=== PATIENT | male | born 1970 | race Caucasian/White ===

== ENCOUNTER 2019-10-24 22:34 | Outpatient (REF) | payer MEDICAID, SELFPAY ==
[2019-10-24 22:38] LABS: ALT 30 U/L (16-63); AST 12 U/L (15-37); Albumin 4.1 g/dL (3.4-5.0); Alkaline Phosphatase 95 U/L (46-116); Anion Gap 7.9 mmol/L (3-11); BUN 13 mg/dL (7-18); Bilirubin, Total 0.2 mg/dL (0.2-1.0); CO2 29.1 mmol/L (21.0-32.0); CREATININE 0.93 mg/dL (0.70-1.30); Calcium 9.4 mg/dL (8.5-10.1); Calculated LDL 61 mg/dL (<100); Chloride 106 mmol/L (98-107); Cholesterol 140 mg/dL (<200); Glucose 99 mg/dL (74-106); HDL Cholesterol 30 mg/dL (40-60); Magnesium 2.2 mg/dL (1.8-2.4); Potassium 4.1 mmol/L (3.5-5.1); Sodium 143 mmol/L (136-145); Total Protein 7.7 g/dL (6.4-8.2); Triglyceride 245 mg/dL (<150); Vitamin B12 1195 pg/mL (193-986)
== END 2019-10-24 22:54 ==
LOC: NCHCN 22:34
PROVIDERS: Visit Provider Nurse Practitioner Family
DX: I10 Essential (primary) hypertension (principal); F17.210 Nicotine dependence, cigarettes, uncomplicated; F11.20 Opioid dependence, uncomplicated; F41.0 Panic disorder [episodic paroxysmal anxiety]; F51.05 Insomnia due to other mental disorder; K21.9 Gastro-esophageal reflux disease without esophagitis
CPT/HCPCS: 80053; 80061; 82607; 83735

== ENCOUNTER 2020-09-16 06:19 | Emergency (ER) | payer MEDICAID, SELFPAY ==
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
[2020-09-16 06:27] VITALS: BP 143/101; PULSE 84; RESP 16; TEMP 36.1; O2SAT 97
--- NOTE | 2020-09-16 06:30 | DI.RAD_ITS ---
Exam(s) XR TIB/FIB LT EXAM: XR TIB/FIB LT CLINICAL HISTORY: persistent proximal fibula pain s/p blunt trauma. TECHNIQUE: 2D digital imaging was performed. COMPARISON: No exams were available for comparison FINDINGS: There is no evidence fracture nor dislocation. No evidence of obvious tibial plateau fracture. Bone density is age-appropriate. No radiopaque foreign body seen. No ominous osseous lesions. Inferior calcaneal spur is incidentally noted. IMPRESSION: No fracture seen DATA REPOSITORY: RADIATION DOSE DELIVERED:
--- NOTE | 2020-09-16 07:06 | DI.VRAD_ITS ---
PROCEDURE INFORMATION: Exam: XR Left Tibia and Fibula Exam date and time: 09/16/2020 6:39 AM Age: 50 years old Clinical indication: Lower leg; Left; Patient HX: Persistent proximal fibula pain S/P blunt trauma 2 weeks ago at work TECHNIQUE: Imaging protocol: XR Left tibia and fibula. Views: 2 views. COMPARISON: No relevant prior studies available. FINDINGS: Bones/joints: Normal. Soft tissues: Normal. IMPRESSION: No acute findings. Dictated and Authenticated by: West Be MD. Ordering:MERLYN Blakely MD
[2020-09-16 07:36] VITALS: BP 124/91; PULSE 78; RESP 18; TEMP 36.2; O2SAT 96
== END 2020-09-16 17:37 | disposition home or self-care (01) ==
PROVIDERS: Emergency Provider Emergency Medicine; PCP Internal Medicine
DX: S80.12XA Contusion of left lower leg, initial encounter (principal); W22.8XXA Striking against or struck by other objects, initial encounter
CPT/HCPCS: 99283; 73590; 99282

== ENCOUNTER 2020-11-19 16:57 | Outpatient (REF) | payer MEDICAID, SELFPAY ==
[2020-11-19 21:45] LABS: Anion Gap 6.3 mmol/L (3-11); BUN 13 mg/dL (7-18); CO2 28.7 mmol/L (21.0-32.0); CREATININE 1.1 mg/dL (0.70-1.30); Calcium 9.6 mg/dL (8.5-10.1); Chloride 106 mmol/L (98-107); Glucose 104 mg/dL (74-106); Potassium 4.2 mmol/L (3.5-5.1); Sodium 141 mmol/L (136-145)
== END 2020-11-19 16:58 | disposition home or self-care (01) ==
LOC: NCHCN 16:57
PROVIDERS: PCP Internal Medicine; Visit Provider Internal Medicine
DX: I10 Essential (primary) hypertension (principal)
CPT/HCPCS: 80048

== ENCOUNTER 2022-03-31 19:33 | Outpatient (REF) | payer MEDICAID, SELFPAY ==
[2022-03-31 21:31] LABS: BUN 12 mg/dL (7-18); Chloride 103 mmol/L (98-107); Glucose 112 mg/dL (74-106); Sodium 139 mmol/L (136-145)
== END 2022-03-31 19:34 | disposition home or self-care (01) ==
LOC: NCHCN 19:33
PROVIDERS: PCP Internal Medicine; Visit Provider Internal Medicine
DX: F11.20 Opioid dependence, uncomplicated (principal); I10 Essential (primary) hypertension; F17.210 Nicotine dependence, cigarettes, uncomplicated
CPT/HCPCS: 80048

== ENCOUNTER 2023-04-12 15:43 | Outpatient (REF) | payer MEDICAID, SELFPAY ==
[2023-04-12 21:11] LABS: Anion Gap 7.7 mmol/L (3-11); BUN 16 mg/dL (7-18); CO2 28.3 mmol/L (21.0-32.0); Calcium 8.9 mg/dL (8.5-10.1); Chloride 105 mmol/L (98-107); Estimated GFR 89.44 (mL/min/1.73m2); Glucose 88 mg/dL (74-106); Potassium 4.3 mmol/L (3.5-5.1); Sodium 141 mmol/L (136-145)
== END 2023-04-12 15:44 | disposition home or self-care (01) ==
LOC: NCHCN 15:43
PROVIDERS: PCP Internal Medicine; Visit Provider Family Medicine
DX: I10 Essential (primary) hypertension (principal)
CPT/HCPCS: 80048

== ENCOUNTER 2023-07-12 06:57 | Day surgery (SDC) | payer MEDICAID, SELFPAY ==
--- NOTE | 2023-07-11 19:48 | W.PM.DSUDISC ---
Date of service: 07/12/23 Time of Service: 08:26 Discharge Plan Disposition Patient Disposition: Home Condition: Good Discharge Details Reason For Visit: screening colonoscopy Attending Provider: Herb Trevizo Primary Care Provider: Stephanie Morelos Home Meds and New Rx's Prescriptions: Continued melatonin 3 mg capsule 6 mg PO HS PRN pantoprazole 40 mg tablet,delayed release (DR/EC) 40 mg PO DAILY lisinopril 40 mg tablet 40 mg PO DAILY bupropion HCl [Wellbutrin XL] 300 mg tablet extended release 24 hr 300 mg PO QAM bupropion HCl 150 mg tablet extended release 24 hr 150 mg PO QAM buprenorphine-naloxone 8-2 mg film 1 film SL BID Rx Instructions: Per [facility] Note dated 05/12/19 [facility] acetaminophen [Tylenol] 325 MG tablet 650 mg PO PRN PRN Discontinued bisacodyl [Dulcolax (bisacodyl)] 5 mg tablet,delayed release (DR/EC) 5 mg PO ONCE Qty: 4 0RF Rx Instructions: Take per colonoscopy instructions provided by ordering providers office polyethylene glycol 3350 17 gram/dose powder 17 g PO ONCE Qty: 238 0RF Rx Instructions: Take per colonoscopy instructions provided by ordering providers office Discharge Instructions Instructions: Diverticulosis (GEN), Colorectal Polyps (GEN), Diverticulosis Diet (GEN) Additional Instructions: Vitaliy, we were able to complete your colonoscopy today without any difficulty. Your prep was fine, and I could see everything nicely. You have just a touch of diverticulosis. Diverticula are little weak spots in the muscular part of the colon wall. These typically accumulate as we get older. Hopefully years will never bother you. I attached a little bit of information here about diverticulosis in general. I also found 1 polyp. I removed this today, and I will send it off for testing. Once I know the nature of the polyp, I will be in touch with recommendations for the timing of your next colonoscopy. If you have any questions in the meantime, please do not hesitate to call or ask at any point. 1. If tolerated, consume a soft, low fiber diet for 1-2 days. 2[address] Do not drive, drink alcohol, operate machinery, make critical decisions, or do activities that require coordination or balance for 24 hours. 3. Because air was put into your colon during the procedure, expelling air from your rectum (passing gas or farting) is normal. 4. You may not have a bowel movement for 1-3 days because of the colonoscopy prep. This is normal. 5. Go directly to the emergency room if you notice any of the following: Develop chills (warm to touch), or if you have a thermometer and your temperature is above 101 Difficulty breathing or difficultly swallowing Persistent vomiting Severe abdominal pain, other than gas cramps Severe chest pain Black, tarry stools Any bleeding ? exceeding one tablespoon 6. Call your physician if the site where your intravenous was started becomes red, swollen, painful, and warm to touch. 7. Your physician has reviewed your pre-procedure medications. Please continue to take those medications as previously ordered. You will be given specific information/education regarding any changes to your medications before leaving. Activity:: Activity as Tolerated Diet:: As Tolerated Discharge Orders Discharge Orders: Discharge Order (Routine); Ordered 07/11/23 Ordered By: Herb Trevizo DS: Diagnosis Discharge Diagnosis (1) Encounter for screening colonoscopy: Status: Acute Asessment and Plan: Follow-up on polypectomy results
--- NOTE | 2023-07-11 19:50 | COLE_ITS ---
Date of service: 07/12/23 Time of Service: 08:28 Colonoscopy Report Date of procedure: 07/12/23 Pre-op diagnosis general: screening colonoscopy Post-op diagnosis procedure note: other (Diverticulosis, colon polyp) Procedure: colonoscopy with polypectomy Surgeon: Herb Trevizo Anesthesia Type: General:No Airway Estimated blood loss (mL): 5 Pathology: other (0.5 cm pedunculated polyp at 25 cm from the anus) Complications: None Disposition: same day Indications: Dante is a 53 year old man who needs a screening for routine health maintenance. Prep: Miralax/Dulcolax Procedure Start Time: 08:03 Procedure End Time: 08:20 Retraction Time: 11 Findings: Rare sigmoid diverticulosis, 0.5 cm pedunculated polyp at 25 cm from the anus Procedure Description: After the induction of monitored anesthetic care, and with the patient in left lateral decubitus position, I began by performing an external anorectal exam.? Perineum and skin were normal, as was the anal verge.? There was no evidence of external hemorrhoids.? Next, I performed a digital rectal exam.? I did not appreciate any abnormal findings.? Next, I advanced a colonoscope into the rectal vault.? I performed retroflexion.? This was normal.? Using insufflation, I then advanced the colonoscope beyond the rectal folds and into the sigmoid colon before advancing towards the cecum.? There were some occasional diverticuli within the sigmoid colon.? The scope was noted to be in the cecum by identification of the ileocecal valve and appendiceal orifice.? I then began withdrawing the colonoscope using repeated irrigation as necessary for full evaluation of the colonic mucosa. Around 25 cm from the anal verge I identified a 0.5 cm polyp. ?It appeared pedunculated in character. ?I was able to remove this with a cold forcep polypectomy. ?I examined the site, and there was minimal bleeding. ?Once this was completed, I continued to withdraw the scope and examine the remainder of the colonic mucosa.?Once the scope was withdrawn to the level of the rectum, great care was taken to examine portions of the rectal folds.? Finally, the scope was withdrawn and the patient was brought to the same-day surgery recovery unit as the anesthetic wore off. ?The findings and instructions were shared with the patient prior to discharge. [place] Bowel Prep [place] Bowel Prep Right Colon: 2 Left Colon: 3 Transverse Colon: 2 Total Score: 7
[2023-07-12 07:22] VITALS: BP 131/82; PULSE 76; RESP 16; TEMP 36.6; O2SAT 96
[2023-07-12] MEDS: Lactated Ringers 1,000 ML 80 ML IV (07:25)
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
[2023-07-12 07:37] VITALS: BMI 29.8
--- NOTE | 2023-07-12 08:19 | BOWEL_PTH ---
PATIENT: Dante Maldonado LOC: [facility] U#:[id number] AGE/SX: 53/M ROOM: RE07/12/[address]: Herb Trevizo MD : 1970 BED: DIS: 07/12/2023 SPEC #: [id number] RECD: 07/12/23 12:35 STATUS: [facility] REQ #: [id number] LORENZO: 07/12/23 08:[address]: Herb Trevizo DEPT: Surgical Specimen RECD BY: Maggi Rai ENTERED: 07/12/23 12:36 SP TYPE: Bowel OTHR DR: Stephanie Morelos Tissues: 1 - BIOPSY BOWEL Procedures: GROSS AND MICRO LEVEL 4 Comments: [id number]
[2023-07-12 08:25] VITALS: BP 113/70; PULSE 74; RESP 16; TEMP 36.4; O2SAT 96
--- NOTE | 2023-07-12 08:44 | W.ANESPOSTOP ---
Postoperative Evaluation Date, Time and Location Date Performed: 07/12/23 Time Performed: 08:44 Patient Location: Day Surgery Unit Vital Signs Most Recent Imported Vital Signs: Most Recent Vital Signs Temp Pulse Resp BP Pulse Ox 36.4 C L 74 16 113/70 96 07/12/23 08:25 07/12/23 08:25 07/12/23 08:25 07/12/23 08:25 07/12/23 08:25 Pain Score Most Recent Pain Score: Most Recent Pain Score Pain Level 0 07/12/23 08:25 Assessment Mental Status: Awake (Alert & Oriented to Patient Baseline) Airway and Respiratory Function: Patent airway with normal (patient baseline) respiratory exam Cardiovascular Function: Hemodynamically Stable Hydration Status: Adequately Hydrated Nausea & Vomiting: No Nausea or Vomiting Pain: Pt. Denies Any Pain Peripheral Nerve Block: Patient did not receive a nerve block
[2023-07-12 08:53] VITALS: BP 119/95; PULSE 81; RESP 16; TEMP 36.5; O2SAT 98
== END 2023-07-12 09:32 | disposition home or self-care (01) ==
LOC: SUR 06:57
PROVIDERS: PCP Family Medicine; Visit Provider Surgery
PROC: 0DJD8ZZ Inspection of Lower Intestinal Tract, Via Natural or Artificial Opening Endoscopic (ICD-10-PCS; CPT 45378; principal; 2023-07-12 08:15)
DX: Z12.11 Encounter for screening for malignant neoplasm of colon (principal); I10 Essential (primary) hypertension; F17.200 Nicotine dependence, unspecified, uncomplicated; K57.30 Diverticulosis of large intestine without perforation or abscess without bleeding; D12.5 Benign neoplasm of sigmoid colon
CPT/HCPCS: 45380; 88305; J2001; J2704

== ENCOUNTER 2024-06-20 15:49 | Outpatient (REF) | payer BC, SELFPAY ==
[2024-06-20 15:22] LABS: HCT 42.1 % (40.0-50.0); HGB 14.2 g/dL (13.5-17.5); MCH 30.6 pg (27.0-33.0); MCHC 33.7 % (32.0-36.0); MCV 91 fL (80-95); MPV 11.2 fL (8.0-11.0); Platelet Count 266 10^3/uL (130-400); RBC 4.64 10^6/uL (4.36-5.78); RDW 13.2 % (11.8-14.1); RDW-SD 44.1 fL; WBC 7.47 10^3/uL (4.4-10.8)
[2024-06-20 16:16] LABS: ALT 41 U/L (16-63); AST 21 U/L (15-37); Albumin 3.7 g/dL (3.4-5.0); Alkaline Phosphatase 116 U/L (46-116); Anion Gap 8.1 mmol/L (3-11); BUN 16 mg/dL (7-18); Bilirubin, Total 0.2 mg/dL (0.2-1.0); CO2 27.9 mmol/L (21.0-32.0); CREATININE 1.1 mg/dL (0.70-1.30); Calcium 9.3 mg/dL (8.5-10.1); Calculated LDL 82 mg/dL (<100); Chloride 105 mmol/L (98-107); Cholesterol 164 mg/dL (<200); Estimated GFR 79.28 (mL/min/1.73m2); Glucose 121 mg/dL (74-106); HDL Cholesterol 42 mg/dL (>or=40); Potassium 4.4 mmol/L (3.5-5.1); Sodium 141 mmol/L (136-145); Total Protein 7.3 g/dL (6.4-8.2); Triglyceride 200 mg/dL (<150); Vitamin B12 623 pg/mL (193-986)
[2024-06-21 10:44] LABS: HIV-1/2 Ag & Ab Screen Negative (Negative)
[2024-06-21 11:01] LABS: Hepatitis C Ab w Rflx HCV PCR Negative (Negative)
== END 2024-06-20 15:50 | disposition home or self-care (01) ==
LOC: NCHCN 15:49
PROVIDERS: PCP Family Medicine; Visit Provider Family Medicine
DX: Z11.59 Encounter for screening for other viral diseases (principal); Z11.4 Encounter for screening for human immunodeficiency virus [HIV]; K21.9 Gastro-esophageal reflux disease without esophagitis; I10 Essential (primary) hypertension
CPT/HCPCS: 80053; 80061; 85027; 86803; 87389; 82607

== ENCOUNTER 2024-12-14 08:13 | Outpatient (REF) | payer BC, SELFPAY ==
[2024-12-21 19:33] LABS: Testosterone, Free 20.9 pg/mL (35.0-155.0)
== END 2024-12-14 08:14 | disposition home or self-care (01) ==
LOC: NCHCN 08:13
PROVIDERS: PCP Family Medicine; Visit Provider Family Medicine
DX: R53.83 Other fatigue (principal)
CPT/HCPCS: 84402; 84403

== ENCOUNTER 2025-02-05 09:12 | Day surgery (SDC) | payer BC, SELFPAY ==
[2025-02-05] VITALS (17 sets, daily range): BP systolic 98–122; BP diastolic 58–84; PULSE 69–82; RESP 9–17; TEMP 36–36.6; O2SAT 95–99; BMI 28.1
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
--- NOTE | 2025-02-05 09:52 | W.PM.DSUDISC ---
Date of service: 02/05/25 Discharge Plan Disposition Patient Disposition: Home Condition: Stable Discharge Details Attending Provider: Emi Meza Primary Care Provider: Stephanie Morelos Home Meds and New Rx's Prescriptions: New hydrocodone-acetaminophen 5-325 mg tablet 1 tab PO Q6H PRNQty: 10 0RF ibuprofen 800 mg tablet 800 mg PO TID PRNQty: 21 0RF Continued melatonin 3 mg capsule 6 mg PO HS PRN pantoprazole 40 mg tablet,delayed release (DR/EC) 40 mg PO DAILY lisinopril 40 mg tablet 40 mg PO DAILY bupropion HCl [Wellbutrin XL] 300 mg tablet extended release 24 hr 300 mg PO QAM Patient Comments: tapering down on the dose bupropion HCl 150 mg tablet extended release 24 hr 150 mg PO QAM buprenorphine-naloxone 8-2 mg film 1 film SL BID Patient Comments: 4mg once daily Rx Instructions: Per [facility] Note dated 05/12/19 [facility] Discharge Instructions Additional Instructions: Shower in 24 hours. Wash gently over skin glue with soapy hands, rinse, pat dry. Don't peel glue or submerge incisions under water. Do not clean the glue with rubbing alcohol or any solvents beyond your regular soap/body wash and water. The glue will start to come off on its own in about 2 weeks. Ok to walk, climb stairs, and resume normal activities of daily living. Do not lift/push/pull more than 20lb for 4 weeks. Do not exercise until cleared by surgeon in office. Monitor yourself for constipation during recovery. Add a stool softener or laxative if no BM within 36 hours. Use ibuprofen along with or instead of prescribed pain medicine. It will help with pain if you take the two together. Wear abdominal binder for comfort. Call or return for fever or incisional problems Stand Alone Forms: Portal Information Referrals: Emi Meza MD [ [facility] STAFF PHYSICIAN, Surgery] Shower/Bathe:: 24 hours Diet:: As Tolerated DS: Diagnosis Discharge Diagnosis (1) Incarcerated umbilical hernia: Status: Acute
[2025-02-05] MEDS: Lactated Ringers 1,000 ML 80 ML IV (09:55)
--- NOTE | 2025-02-05 10:07 | W.ANESPOSTOP ---
Postoperative Evaluation Date, Time and Location Date Performed: 02/05/25 Time Performed: 09:35 Patient Location: PACU Vital Signs Most Recent Imported Vital Signs: Most Recent Vital Signs Temp Pulse Resp BP Pulse Ox 36.4 C L 74 12 122/84 98 02/05/25 09:33 02/05/25 09:33 02/05/25 09:33 02/05/25 09:33 02/05/25 09:33 Pain Score Most Recent Pain Score: Most Recent Pain Score Pain Level 0 02/05/25 09:33 Assessment Mental Status: Awake (Alert & Oriented to Patient Baseline) Airway and Respiratory Function: Patent airway with normal (patient baseline) respiratory exam Cardiovascular Function: Hemodynamically Stable Hydration Status: Adequately Hydrated Nausea & Vomiting: No Nausea or Vomiting Pain: Pt. Denies Any Pain Peripheral Nerve Block: Regional nerve block not resolved at time of post operative discharge
[2025-02-05] MEDS: ceFAZolin 2 GM/50 ML BAG IVPB (10:40)
[2025-02-05] MEDS: Bupivacaine 0.5% Pres-Free W/EPI 30 ML VIAL (11:13)
[2025-02-05] MEDS: Bupivacaine LIPOSOME/PF 133 MG/10 ML VIAL IJ (12:42)
--- NOTE | 2025-02-05 13:52 | W.ANESPOSTOP ---
Postoperative Evaluation Date, Time and Location Date Performed: 02/05/25 Time Performed: 13:52 Patient Location: Day Surgery Unit Vital Signs Most Recent Imported Vital Signs: Most Recent Vital Signs Temp Pulse Resp BP Pulse Ox 36.0 C L 81 14 112/80 99 02/05/25 13:13 02/05/25 13:13 02/05/25 13:13 02/05/25 13:13 02/05/25 13:13 Most Recent Vital Signs Temp Pulse Resp BP Pulse Ox 36.4 C L 74 12 122/84 98 02/05/25 09:33 02/05/25 09:33 02/05/25 09:33 02/05/25 09:33 02/05/25 09:33 Pain Score Most Recent Pain Score: Most Recent Pain Score Pain Level 4 02/05/25 13:13 Assessment Mental Status: Awake (Alert & Oriented to Patient Baseline) Airway and Respiratory Function: Patent airway with normal (patient baseline) respiratory exam Cardiovascular Function: Hemodynamically Stable Hydration Status: Adequately Hydrated Nausea & Vomiting: No Nausea or Vomiting Pain: Pain is tolerable per patient Peripheral Nerve Block: Patient did not receive a nerve block
--- NOTE | 2025-02-05 14:04 | ROE_ITS ---
Operative Note Operative Note PRE-OP DIAGNOSIS: Incarcerated umbilical hernia POST-OP DIAGNOSIS: same PROCEDURE: Laparoscopic repair of incarcerated umbilical hernia with mesh SURGEON: Emi Meza OSTOMY CARE NURSE: eDni Mckay ANESTHESIA TYPE: Local By Surgeon and General LMA/ETT Refer to Anesthesia Record ESTIMATED BLOOD LOSS: 20 PATHOLOGY: none sent COMPLICATIONS: None Implants: 4.[address] mesh Procedure Description: This is a 54-year-old patient who was seen in the office for umbilical hernia with symptoms. Repair was indicated. We discussed a laparoscopic approach to repairing the umbilical hernia. The procedure risks and benefits and alternatives and expectations were reviewed. Informed consent was obtained. The patient was transferred to the operating room on the day of surgery. He was placed supine on the operating table. SCDs were placed at all pressure points were padded appropriately. The abdomen was clipped prepped and draped in the usual sterile fashion and Ioban was used. Timeout was performed. Preoperative antibiotics were administered prophylactically. A Veress needle was used to access the abdominal cavity from the left upper quadrant. Saline d rop test confirmed abdominal placement and the abdomen was insufflated to 15 mmHg. A 5 mm port was placed in the left lower quadrant using the Optiview method. 2 additional 5 mm ports were placed under direct visualization, 1 in the right abdomen and 1 in the left upper quadrant. No injury to the intra- abdominal organs was seen at the Veress site. The Veress needle was removed. The umbilical hernia was visualized and there was omentum incarcerated through it. LigaSure device was used to free the omentum and reduce it. The peritoneal- omental adhesions were freed circumferentially. Graspers and LigaSure device were used to pull small fatty contents from within the hernia and to take down the hernia sac. The small fatty contents and sac were pulled from the abdomen and discarded. The hernia defect was measured to be 1.5cm round. It was closed using a Reuben-Miriam suture passer and 0 prolene suture in figure of eight. A 4.[address] mesh was selected for the repair. Mesh placement was planned on the abdominal wall. Sutures were placed at the cardinal points on the mesh, 0 Prolene suture was used. The mesh was then rolled and introduced into the abdomen through the right sided abdominal port site. In the abdomen, the mesh was unrolled and positioned appropriately for fixation to the abdominal wall. Small punctures were made at premeasured sites on the anterior abdominal wall and a [employer] suture grasper was used to grab the Prolene suture tails and pulled them up through the muscle. This was done in all 4 cardinal points of the mesh through the abdominal wall. The mesh was tied down and secured. Next an absorbable tacker was used to tack the mesh to the peritoneum circumferentially. The mesh lay in good position over the hernia defect with generous overlap of the defect. The abdomen was desufflated after hemostasis was confirmed. The abdomen was washed and dried. The port sites were closed with 4-0 Monocryl suture in a subcuticular fashion. Skin glue was placed over the port sites and suture passer sites in veress site. All sponge and instrument counts were correct at the end of the case. The patient tolerated the procedure well. He extubated in the operating room and transferred to the recovery room in stable condition. No complications Date of Procedure: 02/05/25
[2025-02-05] MEDS: oxyCODONE 5 MG TAB PO (14:20)
== END 2025-02-05 14:50 | disposition home or self-care (01) ==
PROVIDERS: PCP Family Medicine; Visit Provider Surgery
PROC: (CPT 49650; principal; 2025-02-05 10:00)
DX: K42.0 Umbilical hernia with obstruction, without gangrene (principal)
CPT/HCPCS: 49592; C1781; J0131; J0666; J0690; J1100; J1885; J2003; J2250; J2371; J2405; J2704; J3475